=== PATIENT | male | born 1950 | race Caucasian/White ===

== ENCOUNTER 2021-08-24 14:10 | Emergency (ER) | payer MEDICARE ==
[~2021-08-24] VITALS: Ht 172.7 cm; Wt 96.6 kg
[2021-08-24 14:44] LABS: *BILIRUBIN,URIN NEGATIVE (NEGATIVE); *BLOOD, URINE NEGATIVE (NEGATIVE); *CLARITY,URINE CLEAR (CLEAR); *COLOR,URINE YELLOW (YELLOW); *KETONES,URINE NEGATIVE (NEGATIVE); *UROBILINOGEN,URINE 0.2 E.U./dl (NORMAL); LEUKOCYTE ESTERASE ,URINE NEGATIVE (NEGATIVE); NITRITE, URINE NEGATIVE (NEGATIVE); PH,URINE 5.5 (5.0-8.0); UGLUCOSE NEGATIVE (NEGATIVE)
[2021-08-24 14:49] LABS: BACTERIA,URINE NONE SEEN /HPF (NONE SEEN); RBC,URINE 0-3 /HPF (0-3); SQUAMOUS EPITHELIAL CELL,UR NONE SEEN /HPF (NONE SEEN); WBC,URINE 0-3 /HPF (0-3)
--- NOTE | 2021-08-24 14:54 | NUR ---
PT WAS EVALUATED BY DR CARRASCO. PT WAS D/C'd TO HOME. D/C INSTRUCTIONS GIVEN TO THE PT BY DR CARRASCO.
[2021-08-24 15:00] VITALS: BP 131/81
== END 2021-08-24 15:00 | disposition home or self-care (01) ==
LOC: ER 14:22
DX: N40.1 Benign prostatic hyperplasia with lower urinary tract symptoms (principal); R33.8 Other retention of urine; R03.0 Elevated blood-pressure reading, without diagnosis of hypertension
CPT/HCPCS: 51702; A4663

== ENCOUNTER 2021-11-02 08:54 | Emergency (ER) | payer MEDICARE ==
[~2021-11-02] VITALS: Ht 172.7 cm; Wt 92.1 kg
--- NOTE | 2021-11-02 09:11 | NUR ---
PT IS IN ROOM #2A. DR FARRELL EVALUATED THE PT.
[2021-11-02 09:44] LABS: *BILIRUBIN,URIN NEGATIVE (NEGATIVE); *BLOOD, URINE 2+ (NEGATIVE); *CLARITY,URINE CLOUDY (CLEAR); *COLOR,URINE YELLOW (YELLOW); *KETONES,URINE NEGATIVE (NEGATIVE); *UROBILINOGEN,URINE 0.2 E.U./dl (NORMAL); LEUKOCYTE ESTERASE ,URINE TRACE (NEGATIVE); NITRITE, URINE NEGATIVE (NEGATIVE); UGLUCOSE NEGATIVE (NEGATIVE)
[2021-11-02 10:21] LABS: CREATININE 1.1 mg/dL (0.6-1.3)
[2021-11-02 10:24] LABS: RBC,URINE TNTC /HPF (0-3); WBC,URINE 20-50 /HPF (0-3)
[2021-11-02 10:25] LABS: BACTERIA,URINE FEW /HPF (NONE SEEN); MUCUS,URINE NONE SEEN /LPF (0-FEW); SQUAMOUS EPITHELIAL CELL,UR NONE SEEN /HPF (NONE SEEN)
--- NOTE | 2021-11-02 10:36 | NUR ---
LEG BAG WAS APPLIED TO PT's WITH F/C #[address] FARRELL ORDERS. PT TOLERATED TO PROCEDURE WITHOUT COMPLICATIONS.
--- NOTE | 2021-11-02 10:44 | NUR ---
PT WAS D/C'd TO HOME. D/C INSTRUCTIONS GIVEN TO THE PT BY DR FARRELL.
[2021-11-02 10:51] VITALS: BP 139/88
== END 2021-11-02 10:51 | disposition home or self-care (01) ==
LOC: ER 08:56
DX: N39.0 Urinary tract infection, site not specified (principal); N40.1 Benign prostatic hyperplasia with lower urinary tract symptoms; R33.8 Other retention of urine; E78.5 Hyperlipidemia, unspecified
CPT/HCPCS: 36415; 51702; 87086; A4663

== ENCOUNTER 2021-12-17 14:03 | Emergency (ER) | payer MEDICARE ==
[~2021-12-17] VITALS: Ht 172.7 cm; Wt 92.1 kg
--- NOTE | 2021-12-17 14:10 | NUR ---
at bedside to examine pt.
--- NOTE | 2021-12-17 14:23 | NUR ---
able to collect urine from patient.
--- NOTE | 2021-12-17 14:29 | NUR ---
Bladder scanning to check post void residual done X2 and with each scanning 80cc residual recorded, Md aware.
[2021-12-17] MEDS ORDERED: PHENAZOPYRIDINE HCL 100 MG TABLET PO ONE (14:30)
[2021-12-17] MEDS ORDERED: PHENAZOPYRIDINE HCL 100 MG TABLET ONE (14:35)
[2021-12-17 14:43] LABS: *BILIRUBIN,URIN NEGATIVE (NEGATIVE); *BLOOD, URINE 3+ (NEGATIVE); *CLARITY,URINE TURBID (CLEAR); *COLOR,URINE YELLOW (YELLOW); *KETONES,URINE TRACE (NEGATIVE); *UROBILINOGEN,URINE 0.2 E.U./dl (NORMAL); LEUKOCYTE ESTERASE ,URINE 1+ (NEGATIVE); NITRITE, URINE POSITIVE (NEGATIVE); UGLUCOSE NEGATIVE (NEGATIVE)
[2021-12-17] MEDS ORDERED: CEphaleXIN 500 MG CAPSULE ONE (15:10)
[2021-12-17] MEDS ORDERED: CEphaleXIN 500 MG CAPSULE PO ONE (15:15)
--- NOTE | 2021-12-17 15:15 | NUR ---
Dcd instructions given to pt. who verbalized understanding. Pt. left room ambulatory steady gait. Pain well controlled.
[2021-12-17] MEDS ORDERED: PHEN-705 PO (15:17)
[2021-12-17] MEDS ORDERED: CEPH500C2 PO (15:17)
[2021-12-17 16:32] LABS: BACTERIA,URINE MANY /HPF (NONE SEEN); RBC,URINE TNTC /HPF (0-3); SQUAMOUS EPITHELIAL CELL,UR NONE SEEN /HPF (NONE SEEN); WBC,URINE 80-100 /HPF (0-3)
== END 2021-12-17 15:15 | disposition home or self-care (01) ==
LOC: ER 14:03
DX: N39.0 Urinary tract infection, site not specified (principal); E78.5 Hyperlipidemia, unspecified; N40.0 Benign prostatic hyperplasia without lower urinary tract symptoms
CPT/HCPCS: 87077; 87086; A4663

== ENCOUNTER 2024-11-10 06:45 | Emergency (ER) | payer MEDICARE ==
[~2024-11-10] VITALS: Ht 172.7 cm; Wt 93.0 kg
[~2024-11-10 06:45] MED LIST: CEPH500C2 PO; PHEN-705 PO
[2024-11-10] MEDS ORDERED: LIDOCAINE 2% (GLYDO= UROJET) 10 ML JELLY MM ONE (07:07)
[2024-11-10] MEDS: LIDOCAINE 2% (GLYDO= UROJET) 10 ML JELLY MM ONE (07:29)
[2024-11-10 07:59] LABS: *BILIRUBIN,URIN NEGATIVE (NEGATIVE); *BLOOD, URINE 3+ (NEGATIVE); *CLARITY,URINE CLEAR (CLEAR); *COLOR,URINE YELLOW (YELLOW); *KETONES,URINE NEGATIVE (NEGATIVE); *UROBILINOGEN,URINE 0.2 E.U./dl (NORMAL); LEUKOCYTE ESTERASE ,URINE TRACE (NEGATIVE); NITRITE, URINE NEGATIVE (NEGATIVE); PH,URINE 5.5 (5.0-8.0); UGLUCOSE NEGATIVE (NEGATIVE)
[2024-11-10 08:05] VITALS: BP 121/71; O2SAT 96
[2024-11-10 08:08] LABS: *PROTEIN,URINE 3+ (NEGATIVE)
[2024-11-10 08:33] LABS: BACTERIA,URINE MODERATE /HPF (NONE SEEN); RBC,URINE 80-100 /HPF (0-3); URINE AMORPHOUS URATE MODERATE /HPF; WBC,URINE 20-50 /HPF (0-3)
== END 2024-11-10 08:05 | disposition home or self-care (01) ==
LOC: ER 07:04
DX: R33.9 Retention of urine, unspecified (principal); N40.0 Benign prostatic hyperplasia without lower urinary tract symptoms; E78.5 Hyperlipidemia, unspecified; Z60.2 Problems related to living alone; Z88.7 Allergy status to serum and vaccine
CPT/HCPCS: 51702; 87086; A4606; A4663